=== PATIENT | male | born 1980 | race Two or more races ===

== ENCOUNTER 2020-02-29 09:14 | Emergency (ER) | payer MEDICAID, OTHER ==
[~2020-02-29] VITALS: Ht 165.1 cm; Wt 84.8 kg
[2020-02-29] MEDS ORDERED: methylPREDNISolone SOD SUCC 125 MG/2 ML VL IV ONE (10:00)
[2020-02-29 10:10] LABS: Basophils # (auto) 0 10 ^3/uL (0-0.2); Basophils % (auto) 0.6 % (0.0-2.0); Eosinophils # (auto) 0.1 10 ^3/uL (0-0.8); Eosinophils % (auto) 2.1 % (0.0-7.0); Hematocrit 46.7 % (41.0-53.0); Hemoglobin 15.4 g/dL (13.5-17.5); Lymphocytes # (auto) 2.6 10 ^3/uL (0.4-5.4); Lymphocytes % (auto) 47.5 % (10.0-50.0); Mean Corpuscular Hemoglobin 28.5 pg (28.0-32.0); Mean Corpuscular Volume 86.4 fL (80.0-100.0); Monocytes % (auto) 17.4 % (0.0-12.0); Neutrophils # (auto) 1.8 10 ^3/uL (1.6-8.6); Neutrophils % (auto) 32.4 % (37.0-80.0); Nucleated Red Blood Cells % 0.1 %; Platelet Count (auto) 426 10^3/uL (140-450); Red Blood Cells 5.41 10^6/uL (4.5-5.90); Red Cell Distribution Width 13.6 % (11.8-14.3); White Blood Cell 5.6 10^3/uL (4.4-10.8)
[2020-02-29] MEDS ORDERED: AZITHROMYCIN 500MG/ 250ML 250 ML IV ONE (10:16)
[2020-02-29 10:25] LABS: Albumin 3.2 g/dL (3.4-5.0); Calcium 8.8 mg/dL (8.5-10.1); Magnesium 2.7 mg/dL (1.6-2.6); Potassium 4.7 mmol/L (3.5-5.1)
[2020-02-29 10:32] LABS: BUN/Creatinine Ratio 17.9; Bilirubin, Total 0.5 mg/dL (0.2-1.0); Total Protein 8.2 g/dL (6.4-8.2)
[2020-02-29] MEDS ORDERED: ASPirin 81 mg TAB PO ONE (11:15)
[2020-02-29 13:05] LABS: INR 0.98 (0.9-1.15); Partial Thromboplastin Time 26.2 sec (23.0-31.2)
[2020-02-29 15:56] VITALS: BP 126/85
== END 2020-02-29 15:55 | disposition home or self-care (01) ==
LOC: ER 09:14
DX: J06.9 Acute upper respiratory infection, unspecified (principal); Z20.828 Contact with and (suspected) exposure to other viral communicable diseases
CPT/HCPCS: 36415; 71045; 80053; 83735; 83880; 84443; 84484; 85025; 85379; 85610; 85730; 87426; 93005; 96365; 96366; 96375; 99285; C9803; J0456; J2930; J7030; U0003; 96361; 96374

== ENCOUNTER 2021-07-18 08:46 | Emergency (ER) | payer MEDICAID, OTHER ==
[~2021-07-18] VITALS: Ht 175.3 cm; Wt 89.8 kg
[2021-07-18 08:47] VITALS: BP 159/93
[2021-07-18] MEDS ORDERED: IBUP800T27 PO (09:47)
== END 2021-07-18 10:03 | disposition home or self-care (01) ==
LOC: ER 08:46
DX: S93.401A Sprain of unspecified ligament of right ankle, initial encounter (principal); Z79.1 Long term (current) use of non-steroidal anti-inflammatories (NSAID); X50.1XXA Overexertion from prolonged static or awkward postures, initial encounter; Y93.89 Activity, other specified; Y92.89 Other specified places as the place of occurrence of the external cause; Y99.8 Other external cause status
CPT/HCPCS: 73610

== ENCOUNTER 2022-03-04 15:05 | Emergency (ER) | payer OTHER ==
[~2022-03-04 15:05] MED LIST: IBUP800T27 PO
[2022-03-05] MEDS ORDERED: HYDR-4798 PO (12:07)
[2022-03-05] MEDS ORDERED: IBUP800T26 PO (12:07)
== END 2022-03-04 16:04 | disposition left against medical advice (07) ==
LOC: ER 15:05
DX: Z04.1 Encounter for examination and observation following transport accident (principal); Z53.21 Procedure and treatment not carried out due to patient leaving prior to being seen by health care provider

== ENCOUNTER 2022-03-05 08:47 | Emergency (ER) | payer OTHER ==
[~2022-03-05] VITALS: Ht 165.1 cm; Wt 93.3 kg
[2022-03-05 11:52] VITALS: BP 150/97
[2022-03-05] MEDS ORDERED: KETOROLAC TROMETH 60MG/2ML VIAL IM ONE (12:00)
[2022-03-05] MEDS ORDERED: IBUP800T26 PO (12:07)
[2022-03-05] MEDS ORDERED: HYDR-4798 PO (12:07)
== END 2022-03-05 12:13 | disposition home or self-care (01) ==
LOC: ER 08:47
DX: S22.31XA Fracture of one rib, right side, initial encounter for closed fracture (principal); V49.9XXA Car occupant (driver) (passenger) injured in unspecified traffic accident, initial encounter; Y93.89 Activity, other specified; Y92.89 Other specified places as the place of occurrence of the external cause; Y99.8 Other external cause status
CPT/HCPCS: 71101; 96372; 99283; J1885

== ENCOUNTER 2024-02-14 00:18 | Emergency (ER) | payer MEDICAID, OTHER ==
[~2024-02-14] VITALS: Ht 165.1 cm; Wt 79.5 kg
[~2024-02-14 00:18] MED LIST changes: +HYDR-4798 PO; +IBUP-1455 PO; +IBUP-1456 PO; -IBUP800T27 PO
[2024-02-14] MEDS ORDERED: ACETAMINOPHEN 325 MG TAB PO ONE (00:45)
[2024-02-14] MEDS: ACETAMINOPHEN 500 MG TAB or CAP PO ONE (00:52)
[2024-02-14] MEDS: ONDANSETRON HCL 4 MG/2 ML VIAL IM ONE (00:52)
[2024-02-14] MEDS: DICYCLOMINE HCL (10MG/ML) 2 ML AMPULE IM ONE (00:53)
[2024-02-14 01:54] LABS: COVID19 ANTIGEN SOFIA FIA NEGATIVE (NEGATIVE); Rapid Influenza B Negative (Negative)
[2024-02-14 01:58] LABS: Rapid Influenza A Positive (Negative)
--- NOTE | 2024-02-14 02:11 | DVH ---
EXAM: XY CHEST PORTABLE CLINICAL HISTORY: Shortness of breath TECHNIQUE: Single AP view of the chest WID: COMPARISON: CHEST PORTABLE on DOS: 02/29/20 FINDINGS: Lines and tubes: None Chest: The heart size and pulmonary vasculature is within normal limits. No pleural effusion, pneumothorax, or consolidation. Linear left basilar opacities. The osseous structures are grossly intact. IMPRESSION: No acute cardiopulmonary abnormality. Linear left basilar opacities likely atelectasis or scarring
[2024-02-14] MEDS ORDERED: IBUP-1455 PO (02:19)
[2024-02-14] MEDS ORDERED: ACET500T58 PO (02:19)
[2024-02-14] MEDS ORDERED: ZOFR4T PO (02:19)
[2024-02-14] MEDS ORDERED: DICY10CA PO (02:19)
--- NOTE | 2024-02-14 02:20 | ED.PDOC ---
History of Present Illness HPI Comments This patient is a 43-year-old male who arrives the ED today with complaints of cough, fever, chills and body aches as well as intermittent nausea for the past week. Patient states he just feels sick all over. Patient has a temperature of 102+ and was tachycardic at arrival. Chief Complaint: Flu like Time Seen by MD: 00:24 Primary Care Provider: DR COLEY Reviewed Notes: Nurses Notes Allergies: Coded Allergies: NO KNOWN ALLERGIES (Unverified , 02/29/20) Home Meds Active Scripts Ondansetron Odt 4MG Tab (ZOFRAN PO) 4 Mg Tb, 4 MG PO Q6HP PRN, #20 TAB ODT TAB-DISSOLVE IN MOUTH, THEN SWALLOW Prov:LISA JOEL [facility] 02/14/24 Dicyclomine Hcl (BENTYL CAPSULE) 10 Mg Cp, 1 CAP PO Q6HPRN, #20 CAP 0 Refills Prov:LISA JOEL [facility] 02/14/24 Ibuprofen Micronized (Ibuprofen) 800 Mg Tab, 800 MG PO Q8HP PRN, #20 TAB Prov:LISA JOEL [facility] 02/14/24 Acetaminophen (Acetaminophen) 500 Mg Tab, 500 MG PO Q4HP PRN, #30 TAB Prov:WISAM,LISA Anoop [facility] 02/14/24 Hydrocodone-Acetaminophen (Hydrocodone Bitartrate/AC 10-325 mg) 1 Tab Tab, 1 TAB PO TIDP PRN, #20 TAB Prov:WISAMLISA Anoop [facility] 03/05/22 Ibuprofen Micronized (Ibuprofen) 800 Mg Tab, 800 MG PO TIDPRN PRN, #30 TAB Prov:LSIA JOEL [facility] 03/05/22 Ibuprofen (Ibuprofen) 800 Mg Tab, 800 MG PO TID PRN, #30 TAB Prov:KHALIDA JAUREGUI 07/18/21 Information Source: Patient, Friend Mode of Arrival: Wheelchair Severity: Moderate Timing: Days Duration: Since onset Prehospital treatment: Treatment Past Medical History PAST MEDICAL HISTORY: Denies Surgical History: Denies all surgeries Family History Family History: Reviewed,noncontributory to illness Social History Smoker: Non-Smoker Alcohol: Occasionally Drugs: Denies Drug Use Lives In: Home Constitutional: reports: chills, fever, weakness; denies: diaphoresis, fatigue, malaise, sweats, others EENTM: denies: blurred vision, double vision, ear bleeding, ear discharge, ear drainage, ear pain, ear ringing, eye pain, eye redness, hearing loss, mouth pain, mouth swelling, nasal discharge, nose bleeding, nose congestion, nose pain, photophobia, tearing, throat pain, throat swelling, voice changes, others Respiratory: reports: cough; denies: hemoptysis, orthopnea, SOB at rest, shortness of breath, SOB with excertion, stridor, wheezing, others Cardiovascular: denies: chest pain, dizzy spells, diaphoresis, Dyspnea on exertion, edema, irregular heart beat, left arm pain, lightheadedness, palpitations, PND, syncope, others Gastrointestinal: reports: abdominal pain; denies: abdomen distended, blood streaked bowels, constipated, diarrhea, dysphagia, difficulty swallowing, hematemesis, melena, nausea, poor appetite, poor fluid intake, rectal bleeding, rectal pain, vomiting, others Genitourinary: denies: burning, dysuria, flank pain, frequency, hematuria, incontinence, penile discharge, penile sore, pain, testicle pain, testicle swelling, urgency, others Neurological: denies: dizziness, fainting, headache, left sided numbness, left sided weakness, numbness, paresthesia, pre-existing deficit, right sided numbness, right sided weakness, seizure, speech problems, tingling, tremors, weakness, others Musculoskeletal: denies: back pain, gout, joint pain, joint swelling, muscle pain, muscle stiffness, neck pain, others Integumetry: denies: bruises, change in color, change in hair/nails, dryness, laceration, lesions, lumps, rash, wounds, others Allergic/Immunocompromised: denies: Difficulty Healing, Frequent Infections, Hives, Itching, others Hematologic/Lymphatic: denies: anemia, blood clots, easy bleeding, easy bruising, swollen glands, others Endocrine: denies: excessive hunger, excessive sweating, excessive thirst, excessive urination, flushing, intolerance to cold, intolerance to heat, un explained weight gain, unexplained weight loss, others Psychiatric: denies: anxiety, bipolar disorder, depression, hopeless, panic disorder, schizophrenia, sleepless, suicidal, others Physical Exam General Appearance: Moderate Distress (Patient presents as a moderately ill), Normal HEENT: Pharynx Normal, TMs Normal, Other ([place], glassy eyes) Neck: Full Range of Motion, Non-Tender, Normal, Normal Inspection Respiratory: Chest Non-Tender, Lungs Clear, No Accessory Muscle Use, No Respiratory Distress, Normal Breath Sounds Cardiovascular: No Edema, No JVD, No Murmur, No Gallop, Normal Peripheral Pulses, Regular Rate/Rhythm Breast Exam: Deferred Gastrointestinal: No Organomegaly, Non Tender, No Pulsatile Mass, Normal Bowel Sounds, Soft Genitalia: Deferred Pelvic: Deferred Rectal: Deferred Extremities: No calf tenderness, Normal capillary refill, Normal inspection, No rmal range of motion, Non-tender, No pedal edema Neurologic: Alert, rib matcher and fitter II-XII nml as Tested, No Motor Deficits, Normal Affect, Normal Mood, No Sensory Deficits Cerebellar Function: Normal Reflexes: Normal Skin: Dry, Normal Color, Warm Lymphatic: No Adenopathy Was a procedure done? Was a procedure done?: No Differential Dx Considerations may include: COVID 19, influenza a/B, pneumonia, viral upper respiratory illness, viral gastroenteritis, viral illness X-Ray, Labs, Meds, VS Vital Signs Date Time Temp Pulse Resp B/P (MAP) Pulse Ox O2 Delivery O2 Flow Rate FiO2 02/14/24 00:52 102.6 02/14/24 00:35 102.6 123 20 119/77 (91) 97 Lab Test 02/14/24 00:57 Range/Units Influenza Type A Antigen Positive Negative Influenza Type B Antigen Negative Negative SARS-CoV-2 Antigen (Rapid) Negative NEGATIVE Current Medications Medications (Trade) Dose Ordered Sig/Sebas Route Start Time Stop Time Status Last Admin Dicyclomine HCl (Bentyl Injection) 20 mg ONCE ONCE IM 02/14/24 00:45 02/14/24 00:46 DC 02/14/24 00:53 Ondansetron HCl (Zofran) 4 mg ONCE ONCE IM 02/14/24 00:45 02/14/24 00:46 DC 02/14/24 00:52 Acetaminophen (Tylenol Tablet) 1,000 mg ONCE ONCE PO 02/14/24 00:45 02/14/24 00:46 DC 02/14/24 00:52 X-Ray, Labs, Meds, VS Comment All studies performed the ED were evaluated by me personally. Imaging studies were unremarkable for any consolidation or pulmonary concerns. Swabs confirmed influenza A. Patient will be sent home with Tamiflu as well as additional medication to be used as needed. Advised good hydration and healthy nutrition throughout. Time of 1ST Reevaluation: 02:17 Reevaluation 1ST: Improved Consultation: PCP Patient Education/Counseling: Diagnosis, Treatment Family Education/Counseling: Diagnosis, Treatment Departure 1 Departure Time of Disposition: 02:18 Impression: Primary Impression: Influenza A Disposition: 01 HOME / SELF CARE / HOMELESS Condition: Stable Additional Instructions: Advised patient utilize medication as needed for symptomatic relief as well as good hydration and healthy nutrition throughout illness event. e-Prescriptions Oseltamivir Phosphate (Tamiflu) 75 Mg Cap 75 MG PO BID for 5 Days, #10 CAP Prov: LISA JOLE PAC 02/14/24 Ondansetron Odt 4MG Tab (ZOFRAN PO) 4 Mg Tb 4 MG PO Q6HP PRN, #20 TAB ODT TAB-DISSOLVE IN MOUTH, THEN SWALLOW Prov: LISA JOEL [facility] 02/14/24 Dicyclomine Hcl (BENTYL CAPSULE) 10 Mg Cp 1 CAP PO Q6HPRN, #20 CAP 0 Refills Prov: LISA JOEL [facility] 02/14/24 Ibuprofen Micronized (Ibuprofen) 800 Mg Tab 800 MG PO Q8HP PRN, #20 TAB Prov: LISA JOEL PAC 02/14/24 Acetaminophen (Acetaminophen) 500 Mg Tab 500 MG PO Q4HP PRN, #30 TAB Prov: LISA JOEL PAC 02/14/24 Discharged With: Self, Friend Critical Care Note Critical Care Time?: No Stability Stability form required: No Heart Score Heart Score: Heart Score Response (Comments) Value History N/A 0 EKG N/A 0 Age 45-64 1 Risk Factors N/A 0 Troponin N/A 0 Total 1 LISA JOEL PAC Feb 14, 2024 02:19
[2024-02-14] MEDS ORDERED: TAMIFLU PO (02:26)
[2024-02-14 03:40] VITALS: BP 98/59; PULSE 80; RESP 18; TEMP 99; O2SAT 98
== END 2024-02-14 03:57 | disposition home or self-care (01) ==
LOC: ER 00:18
DX: J10.1 Influenza due to other identified influenza virus with other respiratory manifestations (principal); Z20.822 Contact with and (suspected) exposure to COVID-19; Z79.899 Other long term (current) drug therapy
CPT/HCPCS: 36415; 71045; 87426; 87804; 96372; 99284; J0500; J2405

== ENCOUNTER 2024-08-11 10:01 | Inpatient (IN) | payer MEDICAID ==
[2024-08-11] VITALS (7 sets, daily range): BP systolic 126–147; BP diastolic 67–84; PULSE 60–78; RESP 14–20; TEMP 97.6–98.2; O2SAT 95–100
[~2024-08-11] VITALS: Ht 165.1 cm; Wt 84.1 kg
[~2024-08-11 10:01] MED LIST changes: +ACET500T58 PO; +DICY10CA PO; +TAMIFLU PO; +ZOFR4T PO
--- NOTE | 2024-08-11 10:15 | ED.PDOC ---
GI ASSESSMENT HPI Comments This is a 43 year old male presenting to the ED with chief complaint of abdominal pain. Patient reports that he has been experiencing 10/10 epigastric abdominal pain with associated nausea, vomiting, and diarrhea for the past 4 days. Patient relays that he has had no sick contacts during this time. Patient states he had suffered from gastritis years ago. Patient denies any melena, hematemesis, fever, chills, dizziness, headache, dysuria, or flank pain. Time Seen by MD: 10:13 Primary Care Provider: DR COLEY Reviewed Notes: Nurses Notes, Medications, Allergies Allergies: Coded Allergies: NO KNOWN ALLERGIES (Unverified , 02/29/20) Home Meds Active Scripts Oseltamivir Phosphate (Tamiflu) 75 Mg Cap, 75 MG PO BID for 5 Days, #10 CAP Prov:WISAM,LISA Anoop [facility] 02/14/24 Ondansetron Odt 4MG Tab (ZOFRAN PO) 4 Mg Tb, 4 MG PO Q6HP PRN, #20 TAB ODT TAB-DISSOLVE IN MOUTH, THEN SWALLOW Prov:LISA JOEL [facility] 02/14/24 Dicyclomine Hcl (BENTYL CAPSULE) 10 Mg Cp, 1 CAP PO Q6HPRN, #20 CAP 0 Refills Prov:WISAMLISA Anoop [facility] 02/14/24 Ibuprofen Micronized (Ibuprofen) 800 Mg Tab, 800 MG PO Q8HP PRN, #20 TAB Prov:WISAM,LISA Anoop [facility] 02/14/24 Acetaminophen (Acetaminophen) 500 Mg Tab, 500 MG PO Q4HP PRN, #30 TAB Prov:LISA JOEL [facility] 02/14/24 Hydrocodone-Acetaminophen (Hydrocodone Bitartrate/AC 10-325 mg) 1 Tab Tab, 1 TAB PO TIDP PRN, #20 TAB Prov:WISAM,LISA Anoop [facility] 03/05/22 Ibuprofen Micronized (Ibuprofen) 800 Mg Tab, 800 MG PO TIDPRN PRN, #30 TAB Prov:WISAMLISA JOHNSON [facility] 03/05/22 Ibuprofen (Ibuprofen) 800 Mg Tab, 800 MG PO TID PRN, #30 TAB Prov:KHALIDA JAUREGUI 07/18/21 Information Source: Patient Mode of Arrival: Ambulatory Timing: Days Duration: Since onset Prehospital treatment: None Quality: Aching Vomitus: Watery Stool: Watery Severity: Moderate Recent: None Recent Hx of: None Pain Location: Epigastric Modifying Factors: Nothing Associated sign and symptoms: Nausea, Vomiting, Diarrhea, Abdominal Pain Past Medical History Past Medical History (Other): Prediabetes Surgical History: Denies all surgeries Family History Family History: Reviewed,noncontributory to illness, Family hx of Cancer Social History Smoker: Non-Smoker Alcohol: Occasionally Drugs: Denies Drug Use Lives In: Home Constitutional: denies: chills, diaphoresis, fatigue, fever, malaise, sweats, weakness, others EENTM: denies: blurred vision, double vision, ear bleeding, ear discharge, ear drainage, ear pain, ear ringing, eye pain, eye redness, hearing loss, mouth pain, mouth swelling, nasal discharge, nose bleeding, nose congestion, nose pain, photophobia, tearing, throat pain, throat swelling, voice changes, others Respiratory: denies: cough, hemoptysis, orthopnea, SOB at rest, shortness of breath, SOB with excertion, stridor, wheezing, others Cardiovascular: denies: chest pain, dizzy spells, diaphoresis, Dyspnea on exertion, edema, irregular heart beat, left arm pain, lightheadedness, palpitations, PND, syncope, others Gastrointestinal: reports: abdominal pain, diarrhea, nausea, vomiting; denies: abdomen distended, blood streaked bowels, constipated, dysphagia, difficulty swallowing, hematemesis, melena, poor appetite, poor fluid intake, rectal bleeding, rectal pain, others Genitourinary: denies: burning, dysuria, flank pain, frequency, hematuria, incontinence, penile discharge, penile sore, pain, testicle pain, testicle swell ing, urgency, others Neurological: denies: dizziness, fainting, headache, left sided numbness, left sided weakness, numbness, paresthesia, pre-existing deficit, right sided numbness, right sided weakness, seizure, speech problems, tingling, tremors, weakness, others Musculoskeletal: denies: back pain, gout, joint pain, joint swelling, muscle pain, muscle stiffness, neck pain, others Integumetry: denies: bruises, change in color, change in hair/nails, dryness, laceration, lesions, lumps, rash, wounds, others Allergic/Immunocompromised: denies: Difficulty Healing, Frequent Infections, Hives, Itching, others Hematologic/Lymphatic: denies: anemia, blood clots, easy bleeding, easy bruising, swollen glands, others Endocrine: denies: excessive hunger, excessive sweating, excessive thirst, excessive urination, flushing, intolerance to cold, intolerance to heat, unexplained weight gain, unexplained weight loss, others Psychiatric: denies: anxiety, bipolar disorder, depression, hopeless, panic disorder, schizophrenia, sleepless, suicidal, others All Other Systems: Reviewed and Negative Physical Exam General Appearance: Moderate Distress, Obese HEENT: Normal ENT Inspection, Pharynx Normal, TMs Normal Neck: Full Range of Motion, Non-Tender, Normal, Normal Inspection Respiratory: Chest Non-Tender, Lungs Clear, No Accessory Muscle Use, No Respiratory Distress, Normal Breath Sounds Cardiovascular: No Edema, No JVD, No Murmur, No Gallop, Normal Peripheral Pulses, Regular Rate/Rhythm Breast Exam: Deferred Gastrointestinal: Diffuse, No Organomegaly, No Pulsatile Mass, Normal Bowel Sounds, Soft, Tenderness Genitalia: Deferred Pelvic: Deferred Rectal: Deferred Extremities: No calf tenderness, Normal capillary refill, Normal inspection, Normal range of motion, Non-tender, No pedal edema Musculoskeletal : Apperance: Normal Neurologic: Alert, property technician II-XII nml as Tested, Motor Weakness, Normal Affect, Normal Mood, No Sensory Deficits Cerebellar Function: Normal Reflexes: Normal Skin: Dry, Normal Color, Warm Lymphatic: No Adenopathy Was a procedure done? Was a procedure done?: No GI differential Dx Differential Diagnosis: Gastritis/PUD, Gastroenteritis, Inflammatory BD, Pancreatitis, UTI, Electrolyte Imbalance, Food Poisoning X-Ray, Labs, Meds, VS Vital Signs Date Time Temp Pulse Resp B/P (MAP) Pulse Ox O2 Delivery O2 Flow Rate FiO2 08/11/24 10:33 98.7 79 18 127/85 (99) 98 98.7 Lab Test 08/11/24 10:38 08/11/24 10:34 Range/Units Urine Color Yellow Yellow Urine Clarity Clear Clear Urine pH 5.5 5.0-9.0 Urine Specific [place] 1.028 1.001-1.035 Urine Protein Trace H Negative Urine Ketones 2+ H Negative Urine Blood 2+ H Negative /uL Urine Nitrite Negative Negative Urine Bilirubin Negative Negative Urine Urobilinogen Normal Negative mg/dL Urine Leukocyte Esterase Negative Negative /uL Urine RBC 4 0 - 3 /hpf Urine Microscopic WBC 2 0-3 /HPF Urine Squamous Epithelial Cells Few <5 /hpf Urine Bacteria None seen None Seen /hpf Urine Hyaline Casts Few 0 - 2 /lpf Urine Mucus Few None Seen Urine Glucose Normal Normal mg/dL White Blood Count 11.7 H 4.4-10.8 10^3/uL Red Blood Count 5.21 4.5-5.90 10^6/uL Hemoglobin 15.4 13.5-17.5 g/dL Hematocrit 45.4 41.0-53.0 % Mean Corpuscular Volume 87.3 80.0-100.0 fL Mean Corpuscular Hemoglobin 29.7 28.0-32.0 pg Mean Corpuscular Hemoglobin Concent 34.0 32.0-36.0 g/dL Red Cell Distribution Width 13.9 11.8-14.3 % Platelet Count 305 140-450 10^3/uL Mean Platelet Volume 7.9 6.9-10.8 fL Neutrophils (%) (Auto) 65.3 37.0-80.0 % Lymphocytes (%) (Auto) 20.8 10.0-50.0 % Monocytes (%) (Auto) 12.6 H 0.0-12.0 % Eosinophils (%) (Auto) 1.2 0.0-7.0 % Basophils (%) (Auto) 0.1 0.0-2.0 % Neutrophils # (Auto) 7.6 1.6-8.6 10 ^3/uL Lymphocytes # (Auto) 2.4 0.4-5.4 10 ^3/uL Monocytes # (Auto) 1.5 H 0-1.3 10 ^3/uL Eosinophils # (Auto) 0.1 0-0.8 10 ^3/uL Basophils # (Auto) 0 0-0.2 10 ^3/uL Nucleated Red Blood Cells 0.0 % Sodium Level 141 136-145 mmol/L Potassium Level 4.1 3.5-5.1 mmol/L Chloride Level 108 H 98-107 mmol/L Carbon Dioxide Level 25 20-31 mmol/L Anion Gap 8 5-15 Blood Urea Nitrogen 26 H 9-23 mg/dL Creatinine 1.08 0.700-1.30 mg/dL Glomerular Filtration Rate Calc 86 >90 mL/min BUN/Creatinine Ratio 24.1 H 10.0-20.0 Serum Glucose 96 74-106 mg/dL Calcium Level 9.1 8.7-10.4 mg/dL Total Bilirubin 1.2 H 0.2-1.0 mg/dL Aspartate Amino Transferase (AST) 15 13-40 U/L Alanine Aminotransferase (ALT) 17 7-40 U/L Alkaline Phosphatase 51 46-116 U/L Total Protein 7.7 5.7-8.2 g/dL Albumin 4.8 3.2-4.8 g/dL Lipase 27 12-53 U/L CT Abd/Pel indicates: 1. There is small-bowel obstruction with multiple dilated fluid-filled small bowel loops. There is likely transition point in the right lower quadrant abdomen. 2. Malpositioned and malrotated right kidney. 3. Small amount of free fluid in the pelvis. The patient's CBC shows a slightly elevated white blood cell count 11.7 The CBC otherwise within normal limits The chemistry panel is within normal limits The total bilirubin is 1.2 At this time an NG-tube will be placed. The patient was given morphine 4 mg IV push for the pain The patient was given Zofran 4 mg for the nausea At this time we are getting a surgical consult The urine test is negative We have discussed the findings with the patient and they are in agreement with t he management. We did speak with the general surgeon and at this time, he will evaluate the patient The patient is being admitted Images Reviewed?: Images reviewed and evaluated by me Time of 1ST Reevaluation: 11:18 Reevaluation 1ST: Unchanged Patient Education/Counseling: Diagnosis, Treatment, Prognosis Family Education/Counseling: No Family Present Additional Information Reviewed patient's previous visit(s): 02/14/24 for Influenza A The following tests were ordered, and results were reviewed by me: CBC, CMP, Lipase, UA, CT Abd/Pel Additional information was gathered from interviewing the following independent historian: NONE I reviewed and agreed with the following test results read by other provider: CT Abd/Pel I discussed treatments and results with medical personnel and: Patient Comprehensive systems review obtained and negative except for what is stated in the HPI. Departure 1 Departure Time of Disposition: 11:18 Impression: Primary Impression: Intractable abdominal pain Additional Impression: Small bowel obstruction Disposition: ADMITTED INPATIENT Admit to: Med Surg Condition: Fair Critical Care Note Critical Care Time?: No Stability Stability form required: Yes Unstable for transfer: ED Physician Assesment (Clinical assesment) Heart Score Heart Score: Heart Score Response (Comments) Value History N/A 0 EKG N/A 0 Age N/A 0 Risk Factors N/A 0 Troponin N/A 0 Total 0 I personally scribed for BHARTI LAINEZ MD ([email or web address]) on 08/11/24 at 10:15. Electronically submitted by Yoni Cr ([email or web address]). I personally scribed for BHARTI LAINEZ MD ([email or web address]) on 08/11/24 at 11:00. Electronically submitted by Yoni Cr ([email or web address]). BHARTI LAINEZ MD Aug 11, 2024 10:15
[2024-08-11 10:48] LABS: Urine Bacteria None Seen /hpf (None Seen)
[2024-08-11 10:56] LABS: Basophils # (auto) 0 10 ^3/uL (0-0.2); Basophils % (auto) 0.1 % (0.0-2.0); Eosinophils # (auto) 0.1 10 ^3/uL (0-0.8); Eosinophils % (auto) 1.2 % (0.0-7.0); Hematocrit 45.4 % (41.0-53.0); Hemoglobin 15.4 g/dL (13.5-17.5); Lymphocytes # (auto) 2.4 10 ^3/uL (0.4-5.4); Lymphocytes % (auto) 20.8 % (10.0-50.0); Mean Corpuscular Hemoglobin 29.7 pg (28.0-32.0); Mean Corpuscular Volume 87.3 fL (80.0-100.0); Monocytes # (auto) 1.5 10 ^3/uL (0-1.3); Monocytes % (auto) 12.6 % (0.0-12.0); Neutrophils # (auto) 7.6 10 ^3/uL (1.6-8.6); Neutrophils % (auto) 65.3 % (37.0-80.0); Platelet Count (auto) 305 10^3/uL (140-450); Red Blood Cells 5.21 10^6/uL (4.5-5.90); Red Cell Distribution Width 13.9 % (11.8-14.3); White Blood Cell 11.7 10^3/uL (4.4-10.8)
--- NOTE | 2024-08-11 10:57 | DVH ---
CT ABDOMEN AND PELVIS WITHOUT CONTRAST CLINICAL HISTORY: pain TECHNIQUE: Multiple contiguous axial images of the abdomen and pelvis without intravenous contrast. T he images were reformatted degenerate coronal and sagittal reconstructions. All CT scans at this medical facility are performed using dose modulation techniques as appropriate t o a performed exam including the following:Automated exposure control was utilized; adjustment of the MA and/or KV according to patient size; and use of iterative reconstruction technique. Radiation Dose Information: CT Dose: CTDI volume is 12.51 mGy. Dose-length product is 661.0 mGy*cm Comparison: None FINDINGS: Evaluation of the abdomen and pelvis is limited without intravenous contrast. The right kidney is positioned in the right lower abdomen. The right renal pelvis is malrotated anter iorly. The left kidney is appropriately positioned in the left renal fossa. There is no evidence of n ephrolithiasis or hydronephrosis. The liver, gallbladder, pancreas, adrenal glands, and spleen appear within normal limits. There is no gross evidence of abdominal lymphadenopathy. There is no free fluid or free air. The stomach grossly appears unremarkable. There are multiple dilated fluid-filled small bowel loops measuring up 3 cm. There are air-fluid levels anteriorly. There is likely transition point in the ri ght lower quadrant abdomen with few nondilated distal ileal bowel loops seen in the right lower quadr ant. A normal appearing appendix is seen in the right lower quadrant abdomen. The large bowel loops d emonstrate normal caliber. The abdominal aorta and IVC appear within normal limits. The bladder grossly appears unremarkable for the degree of distention. Pelvic organ appears within no rmal limits. There is no gross evidence of a pelvic mass. There is small amount of free fluid in the pelvis. Lung bases are clear. There is no acute osseous abnormality. IMPRESSION: 1. There is small-bowel obstruction with multiple dilated fluid-filled small bowel loops. There is li jerri transition point in the right lower quadrant abdomen. 2. Malpositioned and malrotated right kidney. 3. Small amount of free fluid in the pelvis. HS:Y
[2024-08-11 11:00] LABS: Urine Blood 2+ /uL (Negative); Urine Clarity Clear (Clear); Urine Color Yellow (Yellow); Urine Hyaline Cast FEW /lpf (0 - 2); Urine Mucus FEW (None Seen); Urine Protein, UAD TRACE (Negative); Urine Specific Gravity 1.028 (1.001-1.035); Urine Squamous Epithelial Cell FEW /hpf (<5); Urine Urobilinogen Normal (Negative); Urine WBC 2 /HPF (0-3); Urine pH 5.5 (5.0-9.0)
[2024-08-11 11:06] LABS: Alanine Aminotransferase 17 U/L (7-40); Alkaline Phosphatase 51 U/L (46-116); Anion Gap 8 (5-15); BUN/Creatinine Ratio 24.1 (10.0-20.0); Calcium 9.1 mg/dL (8.7-10.4); Carbon Dioxide 25 mmol/L (20-31); Glucose 96 mg/dL (74-106); Lipase 27 U/L (12-53); Potassium 4.1 mmol/L (3.5-5.1); Sodium 141 mmol/L (136-145); Total Protein 7.7 g/dL (5.7-8.2)
[2024-08-11 11:07] LABS: Albumin 4.8 g/dL (3.2-4.8); Aspartate Aminotransferase 15 U/L (13-40)
[2024-08-11 11:11] LABS: Bilirubin, Total 1.2 mg/dL (0.2-1.0); Blood Urea Nitrogen 26 mg/dL (9-23); Chloride 108 mmol/L (98-107)
[2024-08-11] MEDS: LIDOCAINE VISCOUS 2% 15ML UD PO ONE (11:15)
--- NOTE | 2024-08-11 11:26 | DVHINCON2 ---
Consultation - Surgical Date Seen: Aug 11, 2024 Referring Physician Reason for Consultation abd pain History of Present Illness History of Present Illness 43m w no PMHx w 5d h/o epigastric abd pain, nausea, nbnb emesis and nb diarrhea. Past Medical/Surgical History Past Medical/Surgical History negative Family and Social History Family and Social History no tob alcohol drugs noncontributory Allergies and medications Allergies: Coded Allergies: NO KNOWN ALLERGIES (Unverified , 02/29/20) Home Meds Active Scripts Dicyclomine Hcl (BENTYL CAPSULE) 10 Mg Cp, 1 CAP PO Q6HPRN, #20 CAP 0 Refills Prov:LISA JOEL PAC 02/14/24 Ibuprofen (Ibuprofen) 800 Mg Tab, 800 MG PO TID PRN, #30 TAB Prov:KHALIDA JAUREGUI PA 07/18/21 Reported Medications Aspirin (Aspirin Low Dose) 81 Mg Chw, 1 TAB PO DAILY 08/11/24 Simethicone (Simethicone) 80 Mg Chw, 80 MG PO QIDACHS, TAB.CHEW 08/11/24 Review of systems Review of Systems: HEENT:Normal, CVS:Normal, RESPIRATORY:Normal, GI:Abnormal (pain, diarrhea, nausea, vomitting), :Normal, MSK:Normal, NEURO:Normal Examination Vital signs Vital Signs Date Time Temp Pulse Resp B/P (MAP) Pulse Ox O2 Delivery O2 Flow Rate FiO2 08/12/24 09:00 98.1 82 16 135/86 (102) 95 98.1 08/11/24 20:00 Room Air* 0 21 Medications Labs Test 08/12/24 06:15 08/11/24 10:38 08/11/24 10:34 Range/Units White Blood Count 8.5 # 4.4-10.8 10^3/uL Red Blood Count 5.01 4.5-5.90 10^6/uL Hemoglobin 14.8 13.5-17.5 g/dL Hematocrit 44.0 41.0-53.0 % Mean Corpuscular Volume 87.8 80.0-100.0 fL Mean Corpuscular Hemoglobin 29.5 28.0-32.0 pg Mean Corpuscular Hemoglobin Concent 33.6 32.0-36.0 g/dL Red Cell Distribution Width 13.9 11.8-14.3 % Platelet Count 283 140-450 10^3/uL Mean Platelet Volume 7.8 6.9-10.8 fL Neutrophils (%) (Auto) 62.5 37.0-80.0 % Lymphocytes (%) (Auto) 24.4 10.0-50.0 % Monocytes (%) (Auto) 12.1 H 0.0-12.0 % Eosinophils (%) (Auto) 0.8 0.0-7.0 % Basophils (%) (Auto) 0.2 0.0-2.0 % Neutrophils # (Auto) 5.3 1.6-8.6 10 ^3/uL Lymphocytes # (Auto) 2.1 0.4-5.4 10 ^3/uL Monocytes # (Auto) 1.0 0-1.3 10 ^3/uL Eosinophils # (Auto) 0.1 0-0.8 10 ^3/uL Basophils # (Auto) 0 0-0.2 10 ^3/uL Nucleated Red Blood Cells 0.0 % Sodium Level 144 136-145 mmol/L Potassium Level 4.1 3.5-5.1 mmol/L Chloride Level 111 H 98-107 mmol/L Carbon Dioxide Level 24 20-31 mmol/L Anion Gap 9 5-15 Blood Urea Nitrogen 23 9-23 mg/dL Creatinine 1.03 0.700-1.30 mg/dL Glomerular Filtration Rate Calc 91 >90 mL/min BUN/Creatinine Ratio 22.3 H 10.0-20.0 Serum Glucose 86 74-106 mg/dL Calcium Level 9.3 8.7-10.4 mg/dL Total Bilirubin 0.9 0.2-1.0 mg/dL Aspartate Amino Transferase (AST) 14 13-40 U/L Alanine Aminotransferase (ALT) 16 7-40 U/L Alkaline Phosphatase 51 46-116 U/L Total Protein 7.3 5.7-8.2 g/dL Albumin 4.5 3.2-4.8 g/dL Urine Color Yellow Yellow Urine Clarity Clear Clear Urine pH 5.5 5.0-9.0 Urine Specific [place] 1.028 1.001-1.035 Urine Protein Trace H Negative Urine Ketones 2+ H Negative Urine Blood 2+ H Negative /uL Urine Nitrite Negative Negative Urine Bilirubin Negative Negative Urine Urobilinogen Normal Negative mg/dL Urine Leukocyte Esterase Negative Negative /uL Urine RBC 4 0 - 3 /hpf Urine Microscopic WBC 2 0-3 /HPF Urine Squamous Epithelial Cells Few <5 /hpf Urine Bacteria None seen None Seen /hpf Urine Hyaline Casts Few 0 - 2 /lpf Urine Mucus Few None Seen Urine Glucose Normal Normal mg/dL Hemoglobin A1c 5.3 <5.7 % A1C Lipase 27 12-53 U/L Laboratory Labs Test 08/11/24 10:38 08/11/24 10:34 Range/Units Urine Color Yellow Yellow Urine Clarity Clear Clear Urine pH 5.5 5.0-9.0 Urine Specific [place] 1.028 1.001-1.035 Urine Protein Trace H Negative Urine Ketones 2+ H Negative Urine Blood 2+ H Negative /uL Urine Nitrite Negative Negative Urine Bilirubin Negative Negative Urine Urobilinogen Normal Negative mg/dL Urine Leukocyte Esterase Negative Negative /uL Urine RBC 4 0 - 3 /hpf Urine Microscopic WBC 2 0-3 /HPF Urine Squamous Epithelial Cells Few <5 /hpf Urine Bacteria None seen None Seen /hpf Urine Hyaline Casts Few 0 - 2 /lpf Urine Mucus Few None Seen Urine Glucose Normal Normal mg/dL White Blood Count 11.7 H 4.4-10.8 10^3/uL Red Blood Count 5.21 4.5-5.90 10^6/uL Hemoglobin 15.4 13.5-17.5 g/dL Hematocrit 45.4 41.0-53.0 % Mean Corpuscular Volume 87.3 80.0-100.0 fL Mean Corpuscular Hemoglobin 29.7 28.0-32.0 pg Mean Corpuscular Hemoglobin Concent 34.0 32.0-36.0 g/dL Red Cell Distribution Width 13.9 11.8-14.3 % Platelet Count 305 140-450 10^3/uL Mean Platelet Volume 7.9 6.9-10.8 fL Neutrophils (%) (Auto) 65.3 37.0-80.0 % Lymphocytes (%) (Auto) 20.8 10.0-50.0 % Monocytes (%) (Auto) 12.6 H 0.0-12.0 % Eosinophils (%) (Auto) 1.2 0.0-7.0 % Basophils (%) (Auto) 0.1 0.0-2.0 % Neutrophils # (Auto) 7.6 1.6-8.6 10 ^3/uL Lymphocytes # (Auto) 2.4 0.4-5.4 10 ^3/uL Monocytes # (Auto) 1.5 H 0-1.3 10 ^3/uL Eosinophils # (Auto) 0.1 0-0.8 10 ^3/uL Basophils # (Auto) 0 0-0.2 10 ^3/uL Nucleated Red Blood Cells 0.0 % Sodium Level 141 136-145 mmol/L Potassium Level 4.1 3.5-5.1 mmol/L Chloride Level 108 H 98-107 mmol/L Carbon Dioxide Level 25 20-31 mmol/L Anion Gap 8 5-15 Blood Urea Nitrogen 26 H 9-23 mg/dL Creatinine 1.08 0.700-1.30 mg/dL Glomerular Filtration Rate Calc 86 >90 mL/min BUN/Creatinine Ratio 24.1 H 10.0-20.0 Serum Glucose 96 74-106 mg/dL Calcium Level 9.1 8.7-10.4 mg/dL Total Bilirubin 1.2 H 0.2-1.0 mg/dL Aspartate Amino Transferase (AST) 15 13-40 U/L Alanine Aminotransferase (ALT) 17 7-40 U/L Alkaline Phosphatase 51 46-116 U/L Total Protein 7.7 5.7-8.2 g/dL Albumin 4.8 3.2-4.8 g/dL Lipase 27 12-53 U/L Examination: GENERAL:Normal (nad, wdwn), HEENT:Normal (anicteric, eomi), NECK:Normal (supple, midline), LUNGS:Normal (ctab no wrr), CVS:Normal (rrr), ABDOMEN:Abnormal (s, nd, mild epigastric tenderness, no lynne no guarding), MSK:Normal (atraumatic, full rom), SKIN:Normal (warm well perfused, c/d/i), NEURO:Normal (a&ox3, griossly intact) Problem List/Assessment/Plan Problems: (1) Gastroenteritis (2) Small bowel obstruction (3) Intractable abdominal pain Assessment and Plan 43m w 5d h/o epigastric abd pain, nausea, nb/nb emesis and nb diarrhea. WBC 11, VSS abd exam w mild tenderness cora abd, no surg hx CT w mildly distended fluid filled loops of SB pSBO gastroenteritis clinically pts sxs appear to be more likely 2/2 GE rather than a SBO SBFT tomorrow for further w/u NPO NGT to LIS OOB/ambulate monimize narcotics serial abd exams vte ppx Plan discussed with Plan discussed with: Patient Visit Coding Surgery Date of Service if different f: Aug 11, 2024 Billing Provider: KELVIN MULLINS MD Surgery Visit Codes: [id number] - INP CONSULT <55 MIN KELVIN MULLINS MD Aug 11, 2024 11:26
[2024-08-11] MEDS: ONDANSETRON HCL 4 MG/2 ML VIAL IV ONE (12:21)
[2024-08-11] MEDS: PANTOPRAZOLE 40 MG/10 ML VIAL INJ IV ONE (12:22)
[2024-08-11] MEDS: MORPHINE SULFATE 4 MG/ML SYR/VIAL IV ONE (12:22)
--- NOTE | 2024-08-11 12:25 | DVH ---
EXAM: XY CHEST XRAY 1 VIEW Indication: NGT PLACEMENT Technique: Single frontal view of the chest was obtained Comparison: XY CHEST PORTABLE on DOS: 02/14/24, CHEST PORTABLE on DOS: 02/29/20 FINDINGS: Lines and Tubes: Enteric tube projects over the expected region of the stomach. Lungs: Linear atelectasis left lower lung. Pleura: No effusion. No pneumothorax. Cardiomediastinal contours: Unremarkable Bones: No acute osseous abnormality. IMPRESSION: Enteric tube in appropriate position. Linear atelectasis in the left lower lung.
[2024-08-11] MEDS ORDERED: HYDROcodone-ACET 5/325MG TAB PO PRN (13:45)
[2024-08-11] MEDS ORDERED: ONDANSETRON HCL 4 MG/2 ML VIAL IV PRN (13:45)
[2024-08-11] MEDS ORDERED: DEXTROSE (50%) 50ML SYRG IV PRN (13:45)
[2024-08-11] MEDS ORDERED: ACETAMINOPHEN 325 MG TAB PO PRN (13:45)
[2024-08-11] MEDS ORDERED: NITROGLYCERIN 0.4 MG SL TAB SL PRN (13:45)
--- NOTE | 2024-08-11 13:49 | DVHHP2 ---
History of Present Illness Reason for Visit: Abdominal pain History of Present Illness Star Hussein is a 43-year-old male with past medical history of prediabetes and EGD who presents to the ED with abdominal pain with nausea, vomiting, and diarrhea x4 days. Patient reports that the pain started Thursday. Voodoo at the bedside per she also stated that he was trying to drink some water and he when be able to keep it down. Patient denies any chest pain, shortness of breath, fever, chills, lightheadedness, weakness, dizziness, recent trauma or injury, recent travels, recent sick contacts, or recent ingestion of spoiled food. states that the patient has been having bowel problems. Past Medical History Prediabetes Past Surgical History: Other (EGD) Family History: Cancer, Other (Dad with colon cancer and mom with stomach cancer) Smoke: No ALCOHOL: none Drugs: None Lives: with Family Domestic Violence: Neg Review of Systems Gastrointestinal: Nausea, Vomiting, Abdominal Pain, Diarrhea Allergies: Coded Allergies: NO KNOWN ALLERGIES (Unverified , 02/29/20) Exam Vital Signs Vital Signs Date Time Temp Pulse Resp B/P (MAP) Pulse Ox O2 Delivery O2 Flow Rate FiO2 08/11/24 13:36 77 16 127/75 (92) 95 08/11/24 12:24 Room Air* 0 21 08/11/24 12:24 98.4 98.4 General Appearance: Alert, Oriented X3, Cooperative, No acute distress HEENT: Atraumatic, PERRLA, EOMI, Mucous membr. moist/pink Respiratory: Clear to auscultation, Normal air movement Cardiovascular: Regular rate, Normal S1, Normal S2, No murmurs Abdominal: Soft Extremities: No clubbing, No cyanosis, No edema, Normal pulses Skin: No significant lesion Neuro: Normal speech, Strength at / X4 ext, Normal tone, Sensation intact Psych/Mental Status: Mental status NL, Mood NL Labs/Xrays Labs Test 08/11/24 10:38 08/11/24 10:34 Range/Units Urine Color Yellow Yellow Urine Clarity Clear Clear Urine pH 5.5 5.0-9.0 Urine Specific [place] 1.028 1.001-1.035 Urine Protein Trace H Negative Urine Ketones 2+ H Negative Urine Blood 2+ H Negative /uL Urine Nitrite Negative Negative Urine Bilirubin Negative Negative Urine Urobilinogen Normal Negative mg/dL Urine Leukocyte Esterase Negative Negative /uL Urine RBC 4 0 - 3 /hpf Urine Microscopic WBC 2 0-3 /HPF Urine Squamous Epithelial Cells Few <5 /hpf Urine Bacteria None seen None Seen /hpf Urine Hyaline Casts Few 0 - 2 /lpf Urine Mucus Few None Seen Urine Glucose Normal Normal mg/dL White Blood Count 11.7 H 4.4-10.8 10^3/uL Red Blood Count 5.21 4.5-5.90 10^6/uL Hemoglobin 15.4 13.5-17.5 g/dL Hematocrit 45.4 41.0-53.0 % Mean Corpuscular Volume 87.3 80.0-100.0 fL Mean Corpuscular Hemoglobin 29.7 28.0-32.0 pg Mean Corpuscular Hemoglobin Concent 34.0 32.0-36.0 g/dL Red Cell Distribution Width 13.9 11.8-14.3 % Platelet Count 305 140-450 10^3/uL Mean Platelet Volume 7.9 6.9-10.8 fL Neutrophils (%) (Auto) 65.3 37.0-80.0 % Lymphocytes (%) (Auto) 20.8 10.0-50.0 % Monocytes (%) (Auto) 12.6 H 0.0-12.0 % Eosinophils (%) (Auto) 1.2 0.0-7.0 % Basophils (%) (Auto) 0.1 0.0-2.0 % Neutrophils # (Auto) 7.6 1.6-8.6 10 ^3/uL Lymphocytes # (Auto) 2.4 0.4-5.4 10 ^3/uL Monocytes # (Auto) 1.5 H 0-1.3 10 ^3/uL Eosinophils # (Auto) 0.1 0-0.8 10 ^3/uL Basophils # (Auto) 0 0-0.2 10 ^3/uL Nucleated Red Blood Cells 0.0 % Sodium Level 141 136-145 mmol/L Potassium Level 4.1 3.5-5.1 mmol/L Chloride Level 108 H 98-107 mmol/L Carbon Dioxide Level 25 20-31 mmol/L Anion Gap 8 5-15 Blood Urea Nitrogen 26 H 9-23 mg/dL Creatinine 1.08 0.700-1.30 mg/dL Glomerular Filtration Rate Calc 86 >90 mL/min BUN/Creatinine Ratio 24.1 H 10.0-20.0 Serum Glucose 96 74-106 mg/dL Calcium Level 9.1 8.7-10.4 mg/dL Total Bilirubin 1.2 H 0.2-1.0 mg/dL Aspartate Amino Transferase (AST) 15 13-40 U/L Alanine Aminotransferase (ALT) 17 7-40 U/L Alkaline Phosphatase 51 46-116 U/L Total Protein 7.7 5.7-8.2 g/dL Albumin 4.8 3.2-4.8 g/dL Lipase 27 12-53 U/L CT ABDOMEN AND PELVIS WITHOUT CONTRAST CLINICAL HISTORY: pain TECHNIQUE: Multiple contiguous axial images of the abdomen and pelvis without intravenous contrast. The images were reformatted degenerate coronal and sagittal reconstructions. All CT scans at this medical facility are performed using dose modulation techniques as appropriate to a performed exam including the following:Automated exposure control was utilized; adjustment of the MA and/or KV according to patient size; and use of iterative reconstruction technique. Radiation Dose Information: CT Dose: CTDI volume is 12.51 mGy. Dose-length product is 661.0 mGy*cm Comparison: None FINDINGS: Evaluation of the abdomen and pelvis is limited without intravenous contrast. The right kidney is positioned in the right lower abdomen. The right renal pelvis is malrotated anteriorly. The left kidney is appropriately positioned in the left renal fossa. There is no evidence of nephrolithiasis or hydronephrosis. The liver, gallbladder, pancreas, adrenal glands, and spleen appear within normal limits. There is no gross evidence of abdominal lymphadenopathy. There is no free fluid or free air. The stomach grossly appears unremarkable. There are multiple dilated fluid- filled small bowel loops measuring up 3 cm. There are air-fluid levels anteriorly. There is likely transition point in the right lower quadrant abdomen with few nondilated distal ileal bowel loops seen in the right lower quadrant. A normal appearing appendix is seen in the right lower quadrant abdomen. The large bowel loops demonstrate normal caliber. The abdominal aorta and IVC appear within normal limits. The bladder grossly appears unremarkable for the degree of distention. Pelvic organ appears within normal limits. There is no gross evidence of a pelvic mass. There is small amount of free fluid in the pelvis. Lung bases are clear. There is no acute osseous abnormality. IMPRESSION: 1. There is small-bowel obstruction with multiple dilated fluid-filled small bowel loops. There is likely transition point in the right lower quadrant abdomen. 2. Malpositioned and malrotated right kidney. 3. Small amount of free fluid in the pelvis. EXAM: XY CHEST XRAY 1 VIEW Indication: NGT PLACEMENT Technique: Single frontal view of the chest was obtained Comparison: XY CHEST PORTABLE on DOS: 02/14/24, CHEST PORTABLE on DOS: 02/29/20 FINDINGS: Lines and Tubes: Enteric tube projects over the expected region of the stomach. Lungs: Linear atelectasis left lower lung. Pleura: No effusion. No pneumothorax. Cardiomediastinal contours: Unremarkable Bones: No acute osseous abnormality. IMPRESSION: Enteric tube in appropriate position. Linear atelectasis in the left lower lung. Assessment/Plan Assessment/Plan Assessment Intractable abdominal pain likely due to small bowel obstruction Leukocytosis likely due to colitis versus enteritis versus other etiology Hyperbilirubinemia Malpositioned malrotated right kidney History of prediabetes Plan Admit to med surge Antiemetics Pain management NG tube CT abdomen and pelvis UA Lipase Chest x-ray noted Hemoglobin A1c IV fluids NPO Per patient does not take any home medications DVT prophylaxis-not indicated patient ambulating PUD prophylaxis-PPIs Discussed plan of care with patient, patient's spouse, and nurse General surgery consulted by ED Plan discussed with: Patient, Spouse Date of Service: Aug 11, 2024 Billing Provider: ANNE NELSON Common Visit Codes: [id number] INP/OBS CARE (HIGH) ANNE NELSON Aug 11, 2024 13:49
[2024-08-11] MEDS ORDERED: PANTOPRAZOLE 40 MG/10 ML VIAL INJ IV SCH (14:00)
[2024-08-11] MEDS ORDERED: MORPHINE SULFATE 4 MG/ML SYR/VIAL IV PRN (14:00)
[2024-08-11] MEDS: MORPHINE SULFATE 4 MG/ML SYR/VIAL IV PRN (14:17)
[2024-08-11] MEDS: SODIUM CHLORIDE 0.9% 1,000 ML IV SCH (14:43)
[2024-08-11] MEDS: PIPERACILLIN-TAZOB 3.375GM 100 ML IV SCH (14:44)
[2024-08-11] MEDS ORDERED: SIME80CH49 PO (15:55)
[2024-08-11] MEDS ORDERED: ASPI81CH59 PO (15:59)
[2024-08-11] MEDS ORDERED: ACCU-CHEK COMFORT CURVE STRIP VI SCH (18:00)
[2024-08-11] MEDS ORDERED: InsuLIN REG 1unit/0.01ml Soln (100units/ml) SC SCH (18:00)
[2024-08-12] VITALS (7 sets, daily range): BP systolic 120–141; BP diastolic 75–88; PULSE 67–88; RESP 16–18; TEMP 97.7–98.7; O2SAT 94–99
[2024-08-12 06:48] LABS: Basophils # (auto) 0 10 ^3/uL (0-0.2); Basophils % (auto) 0.2 % (0.0-2.0); Eosinophils # (auto) 0.1 10 ^3/uL (0-0.8); Eosinophils % (auto) 0.8 % (0.0-7.0); Hemoglobin 14.8 g/dL (13.5-17.5); Lymphocytes # (auto) 2.1 10 ^3/uL (0.4-5.4); Lymphocytes % (auto) 24.4 % (10.0-50.0); Mean Corpuscular Hemoglobin 29.5 pg (28.0-32.0); Mean Corpuscular Hgb Conc. 33.6 g/dL (32.0-36.0); Mean Corpuscular Volume 87.8 fL (80.0-100.0); Monocytes % (auto) 12.1 % (0.0-12.0); Neutrophils # (auto) 5.3 10 ^3/uL (1.6-8.6); Neutrophils % (auto) 62.5 % (37.0-80.0); Platelet Count (auto) 283 10^3/uL (140-450); Red Blood Cells 5.01 10^6/uL (4.5-5.90); Red Cell Distribution Width 13.9 % (11.8-14.3); White Blood Cell 8.5 10^3/uL (4.4-10.8)
[2024-08-12 07:13] LABS: Alanine Aminotransferase 16 U/L (7-40); Albumin 4.5 g/dL (3.2-4.8); Alkaline Phosphatase 51 U/L (46-116); Anion Gap 9 (5-15); Aspartate Aminotransferase 14 U/L (13-40); BUN/Creatinine Ratio 22.3 (10.0-20.0); Bilirubin, Total 0.9 mg/dL (0.2-1.0); Blood Urea Nitrogen 23 mg/dL (9-23); Calcium 9.3 mg/dL (8.7-10.4); Carbon Dioxide 24 mmol/L (20-31); Glucose 86 mg/dL (74-106); Potassium 4.1 mmol/L (3.5-5.1); Sodium 144 mmol/L (136-145); Total Protein 7.3 g/dL (5.7-8.2)
[2024-08-12 07:21] LABS: Chloride 111 mmol/L (98-107)
[2024-08-12] MEDS: PANTOPRAZOLE 40 MG/10 ML VIAL INJ IV SCH (10:00)
[2024-08-12] MEDS: GASTROGRAFIN 120 ML SOL ONE (10:41)
--- NOTE | 2024-08-12 15:13 | DVH ---
EXAM: XY SMALL BOWEL SERIES-W GASTROGRA DATE OF SERVICE: 08/12/2024 01:07 PM ORDERING PHYSICIAN: MAAME SULLIVAN REASON FOR EXAM: SBO TECHNIQUE: Medical Insurance Claims Processor image of the abdomen obtained. 7 AP supine images of the abdomen obtained after adm inistration of contrast via an NG tube. COMPARISON: CT abdomen and pelvis from 08/11/2024 FINDINGS: Medical Insurance Claims Processor image demonstrates a gastric tube which projects over the body of the stomach. 60 mL of gastrografin contrast administered via NG tube. Contrast was seen in the large bowel by 1 h our and by 2 Hours was seen in the rectum. Mildly dilated small bowel loops in the left abdomen sin red to more normal caliber small bowel loops in the right abdomen. IMPRESSION: 1. Contrast was seen in the colon by 1 hour in this Gastrografin study, going against high-grade sma ll bowel obstruction. 2. Mildly dilated left small bowel loops compared to more normal caliber right small bowel loops whic h could be a partial small-bowel obstruction or ileus.
--- NOTE | 2024-08-12 15:28 | DVHPN2 ---
Progress Note Date Seen: Aug 12, 2024 Medical Necessity Reason Pt with a Central, PICC or Fol: No Subjective Patient reports: No new complaints Objective vital signs Vital Sign Date Time Temp Pulse Resp B/P (MAP) Pulse Ox O2 Delivery O2 Flow Rate FiO2 08/12/24 09:00 98.1 82 16 135/86 (102) 95 98.1 08/12/24 08:00 Room Air* 0 21 Total Intake and Output 08/11/24 08/11/24 08/12/24 15:00 23:00 07:00 Intake Total 100 ml 0 ml Balance 100 ml 0 ml medications Current Medications Medications Dose Ordered Sig/Sebas Route Start Time Stop Time Status Last Admin Dose Admin Sodium Chloride 1,000 ml @ 120 mls/hr Q8H20M IV 08/11/24 13:45 08/11/24 14:43 120 MLS/HR Acetaminophen/ Hydrocodone Bitart 1 tab Q4HP PRN PO 08/11/24 13:45 Ondansetron HCl 4 mg Q4HP PRN IV 08/11/24 13:45 Acetaminophen 650 mg Q6HP PRN PO 08/11/24 13:45 Morphine Sulfate 2 mg Q4HPRN PRN IV 08/11/24 14:00 08/11/24 23:02 2 MG Nitroglycerin 0.4 mg Q5MINP PRN SL 08/11/24 13:45 Morphine Sulfate 2 mg Q30M PRN IV 08/11/24 14:00 Piperacillin Sod/ Tazobactam Sod 100 ml @ 25 mls/hr Q8HR IV 08/11/24 14:00 08/12/24 14:44 25 MLS/HR Pantoprazole Sodium 40 mg DAILY IV 08/12/24 10:00 08/12/24 10:00 40 MG Examination: GENERAL:Normal, HEENT:Normal, NECK:Normal, LUNGS:Normal, CVS:Normal, ABDOMEN:Normal (ngt to lis), MSK:Normal, SKIN:Normal, NEURO:Normal laboratory and microbiology Laboratory Tests 08/12/24 06:15 Test 08/12/24 06:15 Range/Units Serum Glucose 86 74-106 mg/dL Problem List/Assessment/Plan Problems(with codes): (1) Gastroenteritis (2) Intractable abdominal pain (3) Small bowel obstruction Problem List/Assessment/Plan 08/12/24 43M w upper abd pain, nausea, vomiting and diarrhea SBO gastroenteritis suly, vss SBFT reviewed, contrast transit to colon withinm 1hr --> rules out SBO d/c ngt clears trial if tolerates can advance diet vte ppx no acute surgical interventions Plan discussed with: Patient, Other (rn) KELVIN MULLINS MD Aug 12, 2024 15:28
--- NOTE | 2024-08-12 16:56 | DVHPN2 ---
Subjective Patient is currently getting small-bowel series. Reviewed: Care Plan Changes from previous H/P or p: No Changes Gastrointestinal: Nausea, Vomiting, Abdominal Pain, Diarrhea Objective Vitals Vital Signs Date Time Temp Pulse Resp B/P (MAP) Pulse Ox O2 Delivery O2 Flow Rate FiO2 08/12/24 16:44 98.1 71 16 131/78 (95) 96 98.1 08/12/24 08:00 Room Air* 0 21 Intake/Output Intake and Output 08/12/24 07:00 Intake Total 100 ml Balance 100 ml Intake Oral 0 ml IV Total 100 ml # Voids 1 Exam HEENT pupils are reactive Neck is supple CV is S1-S2 regular rate and rhythm Respiratory are clear GI sluggish bowel sound Extremity no edema [employer] no motor deficit Medications Current Medications Medications Dose Ordered Sig/Sebas Route Start Time Stop Time Status Last Admin Dose Admin Sodium Chloride 1,000 ml @ 120 mls/hr Q8H20M IV 08/11/24 13:45 08/11/24 14:43 120 MLS/HR Acetaminophen/ Hydrocodone Bitart 1 tab Q4HP PRN PO 08/11/24 13:45 Ondansetron HCl 4 mg Q4HP PRN IV 08/11/24 13:45 Acetaminophen 650 mg Q6HP PRN PO 08/11/24 13:45 Morphine Sulfate 2 mg Q4HPRN PRN IV 08/11/24 14:00 08/11/24 23:02 2 MG Nitroglycerin 0.4 mg Q5MINP PRN SL 08/11/24 13:45 Morphine Sulfate 2 mg Q30M PRN IV 08/11/24 14:00 Piperacillin Sod/ Tazobactam Sod 100 ml @ 25 mls/hr Q8HR IV 08/11/24 14:00 08/12/24 14:44 25 MLS/HR Pantoprazole Sodium 40 mg DAILY IV 08/12/24 10:00 08/12/24 10:00 40 MG Laboratory Results Laboratory Tests 08/12/24 06:15 Chemistry Test 08/12/24 06:15 Albumin 4.5 g/dL (3.2-4.8) Calcium Level 9.3 mg/dL (8.7-10.4) Total Protein 7.3 g/dL (5.7-8.2) LFT Test 08/12/24 06:15 Alanine Aminotransferase (ALT) 16 U/L (7-40) Alkaline Phosphatase 51 U/L (46-116) Aspartate Amino Transferase (AST) 14 U/L (13-40) Total Bilirubin 0.9 mg/dL (0.2-1.0) Urinalysis Test 08/11/24 10:38 Urine Color Yellow (Yellow) Urine Clarity Clear (Clear) Urine pH 5.5 (5.0-9.0) Urine Specific [place] 1.028 (1.001-1.035) Urine Protein Trace (Negative) H Urine Ketones 2+ (Negative) H Urine Blood 2+ /uL (Negative) H Urine Nitrite Negative (Negative) Urine Bilirubin Negative (Negative) Urine Urobilinogen Normal mg/dL (Negative) Urine Leukocyte Esterase Negative /uL (Negative) Urine RBC 4 /hpf (0 - 3) Urine Microscopic WBC 2 /HPF (0-3) Urine Squamous Epithelial Cells Few /hpf (<5) Urine Bacteria None seen /hpf (None Seen) Urine Hyaline Casts Few /lpf (0 - 2) Urine Mucus Few (None Seen) Urine Glucose Normal mg/dL (Normal) Assessment/Plan Assessment/Plan 43-year-old male with a no significant past medical history presented to the hospital with the abdominal pain nausea and vomiting found to have 1. Small-bowel obstruction 2. Diarrhea ruled out C diff 3. Abdominal pain nausea and vomiting secondary to 1. 4. Leukocytosis -empirical IV antibiotics for now follow up small bowel series follow up General surgery recommendations. Plan discussed with: Patient Date of Service: Aug 12, 2024 Billing Provider: MAAME SULLIVAN MD Common Visit Codes: [id number] INP/OBS CARE(MOD) MAAME SULLIVAN MD Aug 12, 2024 16:55
[2024-08-13] VITALS (7 sets, daily range): BP systolic 118–131; BP diastolic 74–87; PULSE 57–87; RESP 18; TEMP 97.9–98.8; O2SAT 94–98
--- NOTE | 2024-08-13 10:07 | DVHPN2 ---
Progress Note Date Seen: Aug 13, 2024 Medical Necessity Reason Pt with a Central, PICC or Fol: No Subjective Patient reports: No new complaints, Feels better, Other (SULY, tolerating PO, no n/v) Objective vital signs Vital Sign Date Time Temp Pulse Resp B/P (MAP) Pulse Ox O2 Delivery O2 Flow Rate FiO2 08/13/24 05:00 98.1 68 18 118/78 (91) 95 98.1 08/12/24 20:00 Room Air* 0 21 Total Intake and Output 08/12/24 08/12/24 08/13/24 14:59 22:59 06:59 Intake Total 100 ml 650 ml Balance 100 ml 650 ml medications Current Medications Medications Dose Ordered Sig/[place] Route Start Time Stop Time Status Last Admin Dose Admin Sodium Chloride 1,000 ml @ 120 mls/hr Q8H20M IV 08/11/24 13:45 08/13/24 07:25 Acetaminophen/ Hydrocodone Bitart 1 tab Q4HP PRN PO 08/11/24 13:45 Ondansetron HCl 4 mg Q4HP PRN IV 08/11/24 13:45 Acetaminophen 650 mg Q6HP PRN PO 08/11/24 13:45 Morphine Sulfate 2 mg Q4HPRN PRN IV 08/11/24 14:00 08/11/24 23:02 Nitroglycerin 0.4 mg Q5MINP PRN SL 08/11/24 13:45 Morphine Sulfate 2 mg Q30M PRN IV 08/11/24 14:00 Piperacillin Sod/ Tazobactam Sod 100 ml @ 25 mls/hr Q8HR IV 08/11/24 14:00 08/13/24 05:56 Pantoprazole Sodium 40 mg DAILY IV 08/12/24 10:00 08/13/24 09:30 Examination: GENERAL:Normal, HEENT:Normal, NECK:Normal, LUNGS:Normal, CVS:Normal, ABDOMEN:Normal (s/nd/nt), MSK:Normal, SKIN:Normal, NEURO:Normal laboratory and microbiology Laboratory Tests 08/12/24 06:15 Test 08/12/24 06:15 Range/Units Serum Glucose 86 74-106 mg/dL Problem List/Assessment/Plan Problems(with codes): (1) Small bowel obstruction (2) Intractable abdominal pain (3) Gastroenteritis Problem List/Assessment/Plan 43M w upper abd pain, nausea, vomiting and diarrhea SBO gastroenteritis 08/12/24 suly, vss SBFT reviewed, contrast transit to colon withinm 1hr --> rules out SBO d/c ngt clears trial if tolerates can advance diet vte ppx no acute surgical interventions 08/13/24 doing well tolerating PO diet advancement starting yesterday afternoon, ok to advance to regular no n/v OOB/ambulate avoid narcotics replete e- prn VTE ppx no acute surgical interventions, surgery will sign off Plan discussed with: Other KELVIN MULLINS MD Aug 13, 2024 10:07
--- NOTE | 2024-08-13 15:46 | DVHDS2 ---
Discharge Summary Date of Admission Aug 11, 2024 at 13:40 Date of Discharge: Aug 13, 2024 Labs/Diagnostic Data: Laboratory Results Test 08/12/24 06:15 08/11/24 10:38 08/11/24 10:34 White Blood Count 8.5 10^3/uL (4.4-10.8) Red Blood Count 5.01 10^6/uL (4.5-5.90) Hemoglobin 14.8 g/dL (13.5-17.5) Hematocrit 44.0 % (41.0-53.0) Mean Corpuscular Volume 87.8 fL (80.0-100.0) Mean Corpuscular Hemoglobin 29.5 pg (28.0-32.0) Mean Corpuscular Hemoglobin Concent 33.6 g/dL (32.0-36.0) Red Cell Distribution Width 13.9 % (11.8-14.3) Platelet Count 283 10^3/uL (140-450) Mean Platelet Volume 7.8 fL (6.9-10.8) Neutrophils (%) (Auto) 62.5 % (37.0-80.0) Lymphocytes (%) (Auto) 24.4 % (10.0-50.0) Monocytes (%) (Auto) 12.1 % (0.0-12.0) Eosinophils (%) (Auto) 0.8 % (0.0-7.0) Basophils (%) (Auto) 0.2 % (0.0-2.0) Neutrophils # (Auto) 5.3 10 ^3/uL (1.6-8.6) Lymphocytes # (Auto) 2.1 10 ^3/uL (0.4-5.4) Monocytes # (Auto) 1.0 10 ^3/uL (0-1.3) Eosinophils # (Auto) 0.1 10 ^3/uL (0-0.8) Basophils # (Auto) 0 10 ^3/uL (0-0.2) Nucleated Red Blood Cells 0.0 % Sodium Level 144 mmol/L (136-145) Potassium Level 4.1 mmol/L (3.5-5.1) Chloride Level 111 mmol/L (98-107) Carbon Dioxide Level 24 mmol/L (20-31) Anion Gap 9 (5-15) Blood Urea Nitrogen 23 mg/dL (9-23) Creatinine 1.03 mg/dL (0.700-1.30) Glomerular Filtration Rate Calc 91 mL/min (>90) BUN/Creatinine Ratio 22.3 (10.0-20.0) Serum Glucose 86 mg/dL (74-106) Calcium Level 9.3 mg/dL (8.7-10.4) Total Bilirubin 0.9 mg/dL (0.2-1.0) Aspartate Amino Transferase (AST) 14 U/L (13-40) Alanine Aminotransferase (ALT) 16 U/L (7-40) Alkaline Phosphatase 51 U/L (46-116) Total Protein 7.3 g/dL (5.7-8.2) Albumin 4.5 g/dL (3.2-4.8) Urine Color Yellow (Yellow) Urine Clarity Clear (Clear) Urine pH 5.5 (5.0-9.0) Urine Specific [place] 1.028 (1.001-1.035) Urine Protein Trace (Negative) Urine Ketones 2+ (Negative) Urine Blood 2+ /uL (Negative) Urine Nitrite Negative (Negative) Urine Bilirubin Negative (Negative) Urine Urobilinogen Normal mg/dL (Negative) Urine Leukocyte Esterase Negative /uL (Negative) Urine RBC 4 /hpf (0 - 3) Urine Microscopic WBC 2 /HPF (0-3) Urine Squamous Epithelial Cells Few /hpf (<5) Urine Bacteria None seen /hpf (None Seen) Urine Hyaline Casts Few /lpf (0 - 2) Urine Mucus Few (None Seen) Urine Glucose Normal mg/dL (Normal) Hemoglobin A1c 5.3 % A1C (<5.7) Lipase 27 U/L (12-53) Other Laboratory Tests 08/12/24 06:15 Brief Hx & Hospital Course: 43-year-old male with a no significant past medical history presented to the hospital with the abdominal pain nausea and vomiting found to have small-bowel obstruction as well as gastroenteritis. Patient was ruled out for C diff by negative stool for C diff. patient underwent small bowel series and currently stable to be discharged as general surgery signed off as small bowel series is negative for any bowel obstruction. Patient is being discharged under stable condition. Condition at Discharge: Stable Final Diagnosis/Problems List 43-year-old male with a no significant past medical history presented to the hospital with the abdominal pain nausea and vomiting found to have 1. Small-bowel obstruction , resolved 2. Diarrhea ruled out C diff 3. Abdominal pain nausea and vomiting secondary to 1. 4. Leukocytosis 5. Malnutrition right kidney, outpatient follow up with the PCP Discharge Disposition: Home SNF Discharge Will this Physician continue t: No Discharge Instruct/Medications Diet: Cardiac 2g Na,low cholest Diet comment: 1999 ADA diet Activity: No Restrictions, As Tolerated Follow Up/Referral: Follow up with the PCP in 1-2 weeks Medications: Resume home medications Discharge Statement: "Patient was advised to return to the ER or call 911 if any headaches, dizziness, shortness of breath, chest pain, abdominal pain, bleeding, fevers, or worsening of medical condition. Patient was counseled about treatment plan, medications, possible side effects, patientverbalized understanding. All questions were answered to the best of my ability. This discharge took greater then 30 minutes in planning, reviewing documentation, counseling the patient, and discussing with other team members." ASSESSMENT ASSESSMENT Assessment 43-year-old male with a no significant past medical history presented to the hospital with the abdominal pain nausea and vomiting found to have 1. Small-bowel obstruction , resolved 2. Diarrhea ruled out C diff 3. Abdominal pain nausea and vomiting secondary to 1. 4. Leukocytosis 5. Malnutrition right kidney, outpatient follow up with the PCP Date of Service: Aug 13, 2024 Billing Provider: MAAME SULLIVAN MD Common Visit Codes: 81597-FOE/OBS DISCH DAY >30min MAAME SULLIVAN MD Aug 13, 2024 15:46
== END 2024-08-13 17:30 | disposition home or self-care (01) | DRG 247 ==
LOC: ER 10:01 → OVERFLOW 13:40 → WEST WING 15:04
PROVIDERS: ADMIT Internal Medicine; ATTEND Internal Medicine
DX: K56.600 Partial intestinal obstruction, unspecified as to cause (principal); A04.9 Bacterial intestinal infection, unspecified; Z68.30 Body mass index [BMI] 30.0-30.9, adult; E80.6 Other disorders of bilirubin metabolism; Q63.2 Ectopic kidney; R73.03 Prediabetes; Z80.0 Family history of malignant neoplasm of digestive organs; D72.829 Elevated white blood cell count, unspecified
CPT/HCPCS: 36415; 71045; 74176; 74250; 80053; 81001; 83036; 83690; 85025; 87493; 96374; 96375; G0378; J2405; J2470; J2543